=== PATIENT | female | born 1960 | race Caucasian/White ===

== ENCOUNTER 2025-07-10 14:38 | Outpatient (CLI) | payer BC | END 2025-07-10 14:39 | disposition home or self-care (01) | LOC: CSHULT 14:38 | PROVIDERS: ATTEND Student in an Organized Health Care Education/Training Program | DX: E04.2 Nontoxic multinodular goiter (principal); M81.0 Age-related osteoporosis without current pathological fracture | CPT/HCPCS: 76536; 77080 ==